=== PATIENT | female | born 1985 | race Caucasian/White ===

== ENCOUNTER 2016-06-07 00:10 | Observation (INO) | payer OTHER ==
[~2016-06-07] VITALS: Ht 149.9 cm; Wt 66.7 kg
[~2016-06-07 00:10] MED LIST: PREN1TAB80 PO
[2016-06-07] MEDS ORDERED: ACETAMINOPHEN 325 MG TABLET PO ONE (01:15)
[2016-06-07 01:16] VITALS: BP 102/59
== END 2016-06-07 04:10 | disposition home or self-care (01) ==
LOC: 4S 00:10
PROVIDERS: ADMIT Obstetrics & Gynecology; ATTEND Obstetrics & Gynecology
DX: O26.893 Other specified pregnancy related conditions, third trimester (principal); R10.30 Lower abdominal pain, unspecified; R51 Headache; Z3A.29 29 weeks gestation of pregnancy
CPT/HCPCS: 59025; 76815; G0378

== ENCOUNTER 2018-07-11 00:18 | Emergency (ER) | payer MEDICAID, OTHER ==
[~2018-07-11] VITALS: Ht 149.9 cm; Wt 69.8 kg
[2018-07-11] MEDS ORDERED: IRON18TA PO (00:51)
[2018-07-11 02:08] LABS: BASOPHILS % (AUTO) 0.4 % (0.0-2.0); EOSINOPHILS % (AUTO) 2.2 % (1.0-6.0); HEMATOCRIT 32.2 % (36-46); HEMOGLOBIN 11.1 g/dL (12.0-16.0); MEAN CORPUSCULAR HGB CONC 34.4 G/dL (31.0-37.0); MEAN CORPUSCULAR VOLUME 84 fL (80-100); MONOCYTES # (AUTO) 0.7 K/uL (0.1-1.0); MONOCYTES % (AUTO) 8.4 % (2.0-9.0); NEUTROPHILS # (AUTO) 5.3 K/uL (1.8-7.7); PLATELET COUNT (AUTO) 209 K/uL (150-450); RED BLOOD CELL COUNT(AUTO) 3.82 MIL/uL (4.00-5.20); RED CELL DISTRIBUTION WIDTH 14.3 % (11.5-14.5)
[2018-07-11 04:30] VITALS: BP 99/60
== END 2018-07-11 06:14 | disposition home or self-care (01) ==
LOC: EMS 00:19
DX: O26.892 Other specified pregnancy related conditions, second trimester (principal); R10.2 Pelvic and perineal pain; Z3A.18 18 weeks gestation of pregnancy
CPT/HCPCS: 76805; 86901